=== PATIENT | female | born 1990 | race Caucasian/White ===

== ENCOUNTER 2017-07-10 13:45 | Inpatient (IN) | payer OTHER ==
[~2017-07-10] VITALS: Ht 165.1 cm; Wt 98.9 kg
[2017-08-02] MEDS ORDERED: PRENATAL TABLE1 EAC1 PO (06:25)
== END 2017-08-04 10:25 | DRG 775 ==
LOC: LDR 08-02 05:22 → OB/GYN 08-02 11:15
PROC: 10E0XZZ Delivery of Products of Conception, External Approach (ICD-10-PCS; principal; 2017-08-02)
PROC: 0KQM0ZZ Repair Perineum Muscle, Open Approach (ICD-10-PCS; 2017-08-02)
PROC: 10907ZC Drainage of Amniotic Fluid, Therapeutic from Products of Conception, Via Natural or Artificial Opening (ICD-10-PCS; 2017-08-02)
PROC: 4A033R1 Measurement of Arterial Saturation, Peripheral, Percutaneous Approach (ICD-10-PCS; 2017-08-02)
PROC: 4A1HXCZ Monitoring of Products of Conception, Cardiac Rate, External Approach (ICD-10-PCS; 2017-08-02)
DX: O70.1 Second degree perineal laceration during delivery (principal); Z37.0 Single live birth; O99.02 Anemia complicating childbirth; Z3A.39 39 weeks gestation of pregnancy

== ENCOUNTER 2017-08-02 00:40 | Outpatient (CLI) | payer OTHER ==
[2017-08-02] MEDS ORDERED: PRENATAL TABLE1 EAC1 PO (06:25)
== END 2017-08-02 07:03 | disposition still patient (30) ==
LOC: OBS/DEL 00:40
DX: O47.1 False labor at or after 37 completed weeks of gestation (principal); Z34.03 Encounter for supervision of normal first pregnancy, third trimester

== ENCOUNTER 2020-09-05 12:30 | Inpatient (IN) | payer OTHER ==
[~2020-09-05] VITALS: Ht 165.1 cm; Wt 103.0 kg
[~2020-09-05 12:30] MED LIST: PRENATAL TABLE1 EAC1 PO
== END 2020-09-18 12:01 | disposition home or self-care (01) | DRG 807 ==
LOC: EDSTATUS 12:30 → ADM 12:30 → LDR 09-16 10:09 → OB/GYN 09-16 14:48
PROVIDERS: ADMIT Obstetrics & Gynecology; ATTEND Obstetrics & Gynecology
PROC: 10E0XZZ Delivery of Products of Conception, External Approach (ICD-10-PCS; principal; 2020-09-16)
PROC: 0KQM0ZZ Repair Perineum Muscle, Open Approach (ICD-10-PCS; 2020-09-16)
PROC: 4A1HXFZ Monitoring of Products of Conception, Cardiac Rhythm, External Approach (ICD-10-PCS; 2020-09-16)
DX: O70.1 Second degree perineal laceration during delivery (principal); Z37.0 Single live birth; Z3A.39 39 weeks gestation of pregnancy; Z20.822 Contact with and (suspected) exposure to COVID-19

== ENCOUNTER → 2024-04-26 08:08 | Outpatient (CLI) | payer OTHER ==
[2024-04-26 09:02] LABS: HEMOGLOBIN 12.3 g/dL (12.0-15.00); MEAN CELL VOLUME 84.8 fL (80.00-100.00); MEAN CORPUSCULAR HEMOGLOBIN 28.9 pg (27.00-32.0); PLATELET COUNT 273 K/uL (150-450); RED BLOOD COUNT 4.25 M/uL (4.00-6.00); RED CELL DISTRIBUTION WIDTH 13.1 % (11.5-14.5)
[2024-04-26 09:04] LABS: ERYTHROCYTE SEDIMENTATION RATE 33 mm/hr
[2024-04-26 10:00] LABS: ANION GAP 2 (10.0-20.0); BLOOD UREA NITROGEN 14 mg/dL (7-18); BUN CREA RATIO 21 (7.0-25.0); CALCIUM 9.2 mg/dL (8.5-10.1); CARBON DIOXIDE 33 mEq/L (21-32); CHLORIDE 108 mmol/L (98-107); CREATININE SERUM 0.66 mg/dL (0.55-1.02); GFR 102.52; GLUCOSE FASTING 91 mg/dL (65-100); OSMOLALITY SERUM 278 MOSM/KG (275-295); POTASSIUM 4.09 mEq/L (3.5-5.1); SODIUM 139 mmol/L (136-145)
[2024-04-26 10:10] LABS: C-REACTIVE PROTEIN < 0.29 MG/DL (0.00-0.29)
== END | disposition home or self-care (01) ==
LOC: LAB 08:08
DX: D51.9 Vitamin B12 deficiency anemia, unspecified (principal); R51.9 Headache, unspecified; E03.9 Hypothyroidism, unspecified

== ENCOUNTER → 2024-10-18 06:19 | Outpatient (CLI) | payer OTHER ==
[2024-10-18 07:51] LABS: BASO % 0.5 % (0.1-1.2); EOS # 0.05 (0.04-0.54); EOS % 0.7 % (0.7-7.0); LYMPH # 2.47 (1.18-3.74); LYMPH % 32.6 % (19.3-53.1); MEAN PLATELET VOLUME 10.40 fl (9.4-12.4); MONO # 0.46 (0.24-0.82); MONO % 6.1 % (4.7-12.5); NEUT # 4.53 (1.56-6.13); NEUT % 59.8 % (34.0-71.1); RED CELL DISTRIBUTION WIDTH 11.9 % (11.6-14.4)
[2024-10-18 07:57] LABS: ALT/SGPT 16 U/L (12-78); AST/SGOT 11 U/L (15-37); BILIRUBIN TOTAL 0.32 mg/dL (0.3-1.2); BUN CREA RATIO 15 (7.0-25.0); CREATININE SERUM 0.74 mg/dL (0.55-1.02); GFR 89.84; GLOBULINA 3.9 G/DL (2.4-3.5); GLUCOSE FASTING 91 mg/dL (65-100); GLUCOSE RANDOM 91 mg/dL (65-100); OSMOLALITY SERUM 280 MOSM/KG (275-295); PHOSPHOKINASE CREATININE 110 U/L (26-192); T4 FREE 1.08 NG/ML (0.76-1.46); TSH 2.780 uIU/mL (0.358-3.74)
[2024-10-18 09:41] LABS: ERYTHROCYTE SEDIMENTATION RATE 21 mm/hr (0-20)
[2024-10-19 07:07] LABS: HOMOCYSTEINE 8.8 umol/L (0.0-14.5)
== END | disposition home or self-care (01) ==
LOC: LAB 06:19
PROVIDERS: ATTEND Neuromusculoskeletal Medicine & OMM
DX: M62.9 Disorder of muscle, unspecified (principal); G62.9 Polyneuropathy, unspecified; R20.2 Paresthesia of skin; E03.9 Hypothyroidism, unspecified; R73.9 Hyperglycemia, unspecified; R73.01 Impaired fasting glucose; E72.11 Homocystinuria

== ENCOUNTER 2024-10-27 08:51 | Outpatient (CLI) | payer OTHER ==
[2024-10-27 10:08] LABS: URINE APPEARANCE Clear; URINE BILIRRUBIN Negative (NEGATIVE); URINE BLOOD Negative; URINE COLOR Yellow; URINE GLUCOSE Negative (NEGATIVE); URINE KETONE Trace (NEGATIVE); URINE LEUKOCYTE Trace; URINE NITRATE Negative; URINE PROTEIN Negative (NEGATIVE); URINE UROBILINOGEN 0.2 E.U./dl
[2024-10-27 10:12] LABS: URINE BACTERIA 1603.1 uL (0.0-1933); URINE EPITHELIAL CELLS 54.3 uL (0.0-38.8); URINE RBC 5.1 uL (0.0-20.8); URINE WBC 18.7 uL (0.0-23.2)
[2024-10-27 10:19] LABS: URINE CAST 0.00 uL (0.0-1.40)
[2024-10-27 10:24] LABS: BASO % 0.6 % (0.1-1.2); EOS # 0.03 (0.04-0.54); EOS % 0.6 % (0.7-7.0); LYMPH # 1.96 (1.18-3.74); LYMPH % 36.9 % (19.3-53.1); MEAN PLATELET VOLUME 10.70 fl (9.4-12.4); MONO # 0.46 (0.24-0.82); MONO % 8.7 % (4.7-12.5); NEUT # 2.81 (1.56-6.13); NEUT % 52.8 % (34.0-71.1); RED CELL DISTRIBUTION WIDTH 12.2 % (11.6-14.4)
[2024-10-27 11:23] LABS: ALT/SGPT 15.0 U/L (12-78); AST/SGOT 13.0 U/L (15-37); BILIRUBIN TOTAL 0.34 mg/dL (0.3-1.2); BUN CREA RATIO 24.0 (7.0-25.0); CREATININE SERUM 0.67 mg/dL (0.55-1.02); GFR 100.75; GLOBULINA 3.3 G/DL (2.4-3.5); GLUCOSE FASTING 83.0 mg/dL (65-100); OSMOLALITY SERUM 283.0 MOSM/KG (275-295)
[2024-10-28 09:08] LABS: LEUTEINIZING HORMONE 6.1 mIU/mL (.); PROGESTERONA 3.8 ng/mL (.)
== END 2024-10-27 08:52 | disposition home or self-care (01) ==
LOC: LAB 08:51
DX: N95.9 Unspecified menopausal and perimenopausal disorder (principal); N39.0 Urinary tract infection, site not specified; R10.9 Unspecified abdominal pain; E55.9 Vitamin D deficiency, unspecified; E28.9 Ovarian dysfunction, unspecified; E61.1 Iron deficiency; E28.1 Androgen excess

== ENCOUNTER → 2024-11-17 08:01 | Outpatient (CLI) | payer OTHER ==
[2024-11-17 08:36] LABS: URINE APPEARANCE Clear; URINE BILIRRUBIN Negative (NEGATIVE); URINE BLOOD Negative; URINE COLOR Yellow; URINE GLUCOSE Negative (NEGATIVE); URINE LEUKOCYTE Trace; URINE NITRATE Negative; URINE PROTEIN Trace (NEGATIVE); URINE UROBILINOGEN 0.2 E.U./dl
[2024-11-17 08:37] LABS: URINE BACTERIA 1084.7 uL (0.0-1933); URINE EPITHELIAL CELLS 38.2 uL (0.0-38.8); URINE RBC 10.9 uL (0.0-20.8); URINE WBC 24.4 uL (0.0-23.2)
[2024-11-17 08:38] LABS: BASO % 0.1 % (0.1-1.2); EOS # 0.00 (0.04-0.54); EOS % 0.0 % (0.7-7.0); LYMPH # 1.28 (1.18-3.74); LYMPH % 9.3 % (19.3-53.1); MEAN PLATELET VOLUME 10.30 fl (9.4-12.4); MONO # 0.86 (0.24-0.82); MONO % 6.2 % (4.7-12.5); NEUT # 11.49 (1.56-6.13); NEUT % 83.5 % (34.0-71.1); RED CELL DISTRIBUTION WIDTH 12.5 % (11.6-14.4)
[2024-11-17 08:41] LABS: URINE CAST 0.73 uL (0.0-1.40); URINE KETONE 80 (NEGATIVE)
[2024-11-17 09:06] LABS: COVID-19 AG NEGATIVE (NEGATIVE)
[2024-11-17 09:24] LABS: ALT/SGPT 13.0 U/L (12-78); AST/SGOT 10.0 U/L (15-37); BILIRUBIN TOTAL 0.48 mg/dL (0.3-1.2); BUN CREA RATIO 12.0 (7.0-25.0); CREATININE SERUM 0.67 mg/dL (0.55-1.02); GFR 100.75; GLOBULINA 3.5 G/DL (2.4-3.5); GLUCOSE FASTING 98.0 mg/dL (65-100); OSMOLALITY SERUM 280.0 MOSM/KG (275-295)
[2024-11-17 09:57] LABS: MYCOPLASMA PNEUMONIAE IGM NON REACTIVE (NO REACTIVE)
== END | disposition home or self-care (01) ==
LOC: LAB 08:01
DX: J06.9 Acute upper respiratory infection, unspecified (principal); J02.9 Acute pharyngitis, unspecified